=== PATIENT | male | born 1995 | race Two or more races ===

== ENCOUNTER 2016-06-11 03:19 | Emergency (ER) | payer OTHER ==
[~2016-06-11] VITALS: Ht 170.2 cm; Wt 76.9 kg
[~2016-06-11 03:19] MED LIST: ALBU8.5H5 INH
[2016-06-11 03:21] VITALS: BP 149/95
== END 2016-06-11 06:16 | disposition home or self-care (01) ==
LOC: ED 06:15
DX: S43.421A Sprain of right rotator cuff capsule, initial encounter (principal); J45.909 Unspecified asthma, uncomplicated; F17.200 Nicotine dependence, unspecified, uncomplicated; X50.9XXA Other and unspecified overexertion or strenuous movements or postures, initial encounter; Y93.89 Activity, other specified; Y92.410 Unspecified street and highway as the place of occurrence of the external cause; Y99.8 Other external cause status
CPT/HCPCS: 99284